=== PATIENT | female | born 1960 | race Caucasian/White ===

== ENCOUNTER 2016-10-15 20:35 | Emergency (ER) | payer SELFPAY ==
[~2016-10-15] VITALS: Ht 152.4 cm; Wt 59.0 kg
[2016-10-15] MEDS ORDERED: SODIUM CHLORIDE 0.9% 1,000 ML IV ONE (22:59)
[2016-10-15] MEDS ORDERED: ONDANSETRON HCL 4MG/2ML VIAL IV STA (22:59)
[2016-10-15] MEDS ORDERED: MORPHINE SULFATE 4 MG/ML CPJ (NOT FOR IM USE) IV STA (22:59)
[2016-10-15] MEDS ORDERED: HYDRALAZINE 20MG/ML VIAL IV ONE (23:00)
[2016-10-15 23:15] LABS: BASOPHILS % 0.9 % (0.0-2.0); EOSINOPHILS % 3.1 % (0.0-5.0); HEMATOCRIT. 39.4 % (36.0-48.0); HEMOGLOBIN. 13.3 g/dL (12.0-16.0); LYMPHOCYTES % 34.7 % (20.0-50.0); MEAN CORPUSCULAR HEMOGLOBIN 31.1 pg (28.0-32.0); MEAN CORPUSCULAR VOLUME 92.5 fL (81.0-99.0); MEAN PLATELET VOLUME 9.6 fl (7.4-10.4); MONOCYTES % 10.2 % (2.0-8.0); NEUTROPHILS % 51.1 % (40.0-76.0); PLATELET 176 x1000/uL (130-400); RED BLOOD CELL COUNT 4.26 mill/uL (4.2-5.4); RED CELL DISTRIBUTION WIDTH 13.9 % (11.6-14.6)
[2016-10-15 23:20] LABS: CHLORIDE 107 mEq/L (98-107)
[2016-10-15 23:24] LABS: CARBON DIOXIDE 25 mEq/L (21-32)
[2016-10-15 23:26] LABS: PARTIAL THROMBOPLASTIN TIME 27.2 sec (24.0-34.0); PROTHROMBIN TIME 10.1 sec
[2016-10-16 00:03] LABS: CLARITY URINE CLEAR (CLEAR); COLOR URINE YELLOW (YELLOW); GLUCOSE URINE NEGATIVE (NEGATIVE); KETONES URINE NEGATIVE (NEGATIVE); LEUKOCYTE ESTERASE URINE NEGATIVE (NEGATIVE); NITRITE URINE NEGATIVE (NEGATIVE); OCCULT BLOOD URINE 2+ (NEGATIVE); PH URINE 6.5 (4.5-8.0); PROTEIN URINE NEGATIVE (NEGATIVE); SPECIFIC GRAVITY URINE 1.024 (1.005-1.030)
[2016-10-16 00:44] VITALS: BP 180/99
[2016-10-19 15:56] LABS: CHLAMYDIA TRACHOMATIS NAA Negative (Negative); NEISSERIA GONORRHOEAE NAA Negative (Negative)
== END 2016-10-16 03:23 | disposition home or self-care (01) ==
LOC: ER 22:20
DX: N93.9 Abnormal uterine and vaginal bleeding, unspecified (principal); I10 Essential (primary) hypertension; N83.202 Unspecified ovarian cyst, left side; F17.200 Nicotine dependence, unspecified, uncomplicated; Z98.51 Tubal ligation status
CPT/HCPCS: 36415; 74176; 76830; 76856; 80053; 81001; 83690; 85025; 85610; 85730; 87210; 87491; 87591; 96361; 96374; 96375; 99285; J0360; J2270; J2405; J7030; Z7610; 81003

== ENCOUNTER → 2016-11-28 | Outpatient (CLI) | payer MEDICAID | END | disposition home or self-care (01) | LOC: MAMMO 10:17 | DX: N63 Unspecified lump in breast (principal) | CPT/HCPCS: 76641; G0206 ==

== ENCOUNTER → 2017-01-02 | Day surgery (SDC) | payer MEDICAID ==
[~2017-01-02] MED LIST: LIDOCAINE HCL/EPINEPHRINE 1%-EPI 1:100,000 30 ML VIAL INFIL ONE; SODIUM BICARBONATE 4.2% 5 MEQ/10 ML DISP.SYRIN IV ONE
== END | disposition home or self-care (01) ==
LOC: RAD 09:20
DX: N60.31 Fibrosclerosis of right breast (principal)
CPT/HCPCS: 19083; 88305; A4648; J3490

== ENCOUNTER 2017-05-21 21:16 | Emergency (ER) | payer MEDICAID ==
[~2017-05-21] VITALS: Ht 152.4 cm; Wt 67.4 kg
[2017-05-21] MEDS ORDERED: CYCLOBENZAPRINE 10MG TABLET PO ONE (22:30)
[2017-05-21 23:45] VITALS: BP 144/85
== END 2017-05-21 23:59 | disposition home or self-care (01) ==
LOC: ER 21:16
DX: S29.012A Strain of muscle and tendon of back wall of thorax, initial encounter (principal); R05 Cough; I10 Essential (primary) hypertension; F17.200 Nicotine dependence, unspecified, uncomplicated; X58.XXXA Exposure to other specified factors, initial encounter; Y93.89 Activity, other specified; Y92.89 Other specified places as the place of occurrence of the external cause; Y99.8 Other external cause status
CPT/HCPCS: 71045; 93005; 99284; Z7610

== ENCOUNTER 2021-06-22 17:42 | Emergency (ER) | payer MEDICAID ==
[~2021-06-22] VITALS: Ht 152.4 cm; Wt 62.0 kg
[2021-06-23 00:41] LABS: BASOPHILS % 0.7 % (0.0-2.0); EOSINOPHILS % 3.9 % (0.0-5.0); HEMATOCRIT. 40.9 % (36.0-48.0); HEMOGLOBIN. 13.8 g/dL (12.0-16.0); LYMPHOCYTES % 22.7 % (20.0-50.0); MEAN PLATELET VOLUME 9.8 fl (7.4-10.4); MONOCYTES % 11.8 % (2.0-8.0); NEUTROPHILS % 60.9 % (40.0-76.0); PLATELET 174 x1000/uL (130-400); RED BLOOD CELL COUNT 4.45 mill/uL (4.2-5.4); RED CELL DISTRIBUTION WIDTH 13.6 % (11.6-14.6)
[2021-06-23 00:48] LABS: CHLORIDE 106 mEq/L (98-107)
[2021-06-23 02:00] VITALS: BP 139/94
[2021-06-23] MEDS ORDERED: ACETAMINOPHEN 325MG TABLET PO NR (03:45)
[2021-06-23] MEDS ORDERED: MAGNESIUM/ALUMINUM HYDROXIDE/SIMETHICONE 30ML UDC PO NR (03:45)
[2021-06-23] MEDS ORDERED: IOHEXOL-300 100 ML BOTTLE ONE (05:02)
== END 2021-06-23 04:18 | disposition home or self-care (01) ==
LOC: ER 17:42
DX: R10.9 Unspecified abdominal pain (principal); E78.00 Pure hypercholesterolemia, unspecified; I10 Essential (primary) hypertension
CPT/HCPCS: 36415; 74177; 80053; 83690; 85025; 93005; 99285; Q9967